=== PATIENT | female | born 1950 | race Caucasian/White ===

== ENCOUNTER 2022-02-16 07:29 | Inpatient (IN) ==
[~2022-02-16 07:29] MED LIST: Famotidine 20 MG TABLET PO ONE
[2022-02-16] MEDS ORDERED: Celecoxib 200 MG CAPSULE PO ONE (07:54)
[2022-02-16] MEDS: Ringers Solution, Lactated 1,000 ML IVC SCH ×2 (08:05→08:09)
[2022-02-16] MEDS ORDERED: MOM Conc 10 ML UD.LIQ PO PRN (08:10)
[2022-02-16] MEDS ORDERED: *HR* OxyCODONE Immed Rel 5 MG TABLET PO PRN (08:10)
[2022-02-16] MEDS ORDERED: Sennosides 8.6 MG TABLET PO PRN (08:10)
[2022-02-16] MEDS ORDERED: Ondansetron 4 MG/2 ML VIAL IVP PRN ×2 (08:10→10:44)
[2022-02-16] MEDS ORDERED: Lidocaine -MPF 2% 5 ML VIAL ONE (08:47)
[2022-02-16] MEDS ORDERED: *HR* FentaNYL (PF) 100 MCG/2 ML VIAL ONE (08:47)
[2022-02-16] MEDS ORDERED: Ondansetron 4 MG/2 ML VIAL ONE (08:47)
[2022-02-16] MEDS ORDERED: Lidocaine HCL 4 ML Topical Solution (Laryng-O-Jet Kit Sterile Pak) TP ONE (08:47)
[2022-02-16] MEDS ORDERED: *HR* Propofol 200 MG/20 ML VIAL IVP ONE (08:47)
[2022-02-16] MEDS ORDERED: *HR* Succinylcholine 200 MG/10 ML VIAL IVP ONE (08:47)
[2022-02-16] MEDS ORDERED: Lidocaine/EPI 1:100k 1% 30 ML VIAL ONE (09:09)
[2022-02-16] MEDS ORDERED: Bupivacaine/EPI 1:200k 0.25% 50 ML VIAL ONE (09:09)
[2022-02-16 09:20] LABS: Basophils # 0.1 K/mcL (0.0-0.2); Basophils % 1.5 %; Eosinophils # 0.2 K/mcL (0.0-0.6); Eosinophils % 2.3 %; Hematocrit 33.3 % (35.3-44.9); Hemoglobin 10.9 g/dL (11.5-15.4); Immature Granulocytes % 1.5 % (0-4); Lymphocytes # 1.3 K/mcL (0.6-4.6); Lymphocytes % 16.9 %; Mean Corpuscular HGB Conc 32.7 g/dL (31.6-35.5); Mean Corpuscular Hemoglobin 29.6 pg (28.0-33.3); Mean Corpuscular Volume 90.5 fL (83.0-100.0); Monocytes # 0.9 K/mcL (0.0-1.3); Monocytes % 11.9 %; Neutrophils # 5.2 K/mcL (1.6-8.9); Platelet Count 323 K/mcL (140-400); Red Blood Count 3.68 M/mcL (3.82-4.97); Red Cell Distribution Width 13.2 % (11.5-14.5); Segmented Neutrophils % 65.9 %; White Blood Count 7.9 K/mcL (4.3-11.1)
[2022-02-16] MEDS ORDERED: Ethanol\\Acetic Acid\\Na Ace\\Ben 1,000 ML IRRIG.SOLN IR ONE (09:26)
[2022-02-16] MEDS ORDERED: Hydrogen Peroxide (Sterile) 473 ML ONE (09:28)
[2022-02-16] MEDS ORDERED: Povidone-Iodine 45 ML, Sodium Chloride IRRigation 1,000 ML IR ONE (09:50)
[2022-02-16] MEDS ORDERED: *HR* HYDROMORPHONE 2 MG/ML VIAL ONE (10:19)
[2022-02-16] MEDS ORDERED: Tranexamic Acid 1,000 MG/10 ML VIAL ONE ×2 (10:22→11:17)
[2022-02-16] MEDS ORDERED: *HR* HYDROmorphone PF 0.5 MG/0.5 ML SYRINGE IVP PRN (10:44)
[2022-02-16] MEDS ORDERED: Vancomycin 1,000 MG VIAL ONE (10:59)
[2022-02-16] MEDS: Ketorolac 30 MG/ML VIAL IVP SCH ×3 (12:51→23:30)
[2022-02-16] MEDS: Acetaminophen 325 MG TABLET PO SCH ×3 (13:52→23:31)
[2022-02-16] MEDS: CeFAZolin 2 GM/100 ML BAG IVPB SCH (20:16)
[2022-02-16] MEDS: *HR* OxyCODONE Immed Rel 5 MG TABLET PO PRN (20:20)
[2022-02-16] MEDS: COLESTIPOL HCL 1 GM TABLET PO PRN (20:21)
[2022-02-16] MEDS ORDERED: Fluticasone Propionate Nasal 50 MCG/SPRAY BOTTLE NS PRN (20:41)
[2022-02-16] MEDS ORDERED: Colestipol Hcl [Colestid] 1 GM Tablet PO PRN (20:41)
[2022-02-16] MEDS ORDERED: Loratadine 10 MG TABLET PO PRN (20:41)
[2022-02-17] MEDS: *HR* OxyCODONE Immed Rel 5 MG TABLET PO PRN ×3 (03:08→19:46)
[2022-02-17] MEDS: CeFAZolin 2 GM/100 ML BAG IVPB SCH ×3 (03:22→19:47)
[2022-02-17] MEDS: Albuterol 2.5 MG/3 ML NEBULIZER IH SCH ×7 (03:43→23:38)
[2022-02-17 05:42] LABS: Basophils # 0.1 K/mcL (0.0-0.2); Basophils % 0.6 %; Eosinophils % 0.2 %; Hematocrit 25.6 % (35.3-44.9); Immature Granulocytes % 1.2 % (0-4); Lymphocytes # 1.3 K/mcL (0.6-4.6); Mean Corpuscular HGB Conc 32.4 g/dL (31.6-35.5); Mean Corpuscular Volume 89.5 fL (83.0-100.0); Mean Platelet Volume 10.8 fL (9.4-12.4); Monocytes # 0.9 K/mcL (0.0-1.3); Monocytes % 8.8 %; Neutrophils # 7.9 K/mcL (1.6-8.9); Platelet Count 375 K/mcL (140-400); Red Blood Count 2.86 M/mcL (3.82-4.97); Segmented Neutrophils % 76.2 %; White Blood Count 10.3 K/mcL (4.3-11.1)
[2022-02-17 05:46] LABS: Hemoglobin 8.3 g/dL (11.5-15.4)
[2022-02-17 06:01] LABS: BUN/Creatinine Ratio 26 (6-26); Blood Urea Nitrogen 23 mg/dL (8-23); Calcium 9.2 mg/dL (8.6-10.3); Carbon Dioxide 25 mEq/L (23-29); Chloride 101 mEq/L (98-107); Glucose 114 mg/dL (70-105); Osmolality,Calculated 285 (280-300); Potassium 3.2 mEq/L (3.5-5.1); Sodium 135 mEq/L (136-145); eGFR For African Americans > 60 (> 60); eGFR For Non-African Americans > 60 (> 60)
[2022-02-17] MEDS: COLESTIPOL HCL 1 GM TABLET PO PRN ×3 (06:11→21:30)
[2022-02-17] MEDS: Ketorolac 30 MG/ML VIAL IVP SCH ×3 (06:11→16:26)
[2022-02-17] MEDS: Acetaminophen 325 MG TABLET PO SCH ×4 (06:11→23:51)
[2022-02-17] MEDS: Multivit/Ca/Min/Fe/FA 1 TAB TABLET PO SCH (09:38)
[2022-02-17] MEDS: Cholecalciferol (D-3) 1,000 UNIT (25MCG) TABLET PO SCH (09:39)
[2022-02-17] MEDS: Ringers Solution, Lactated 1,000 ML IVC SCH (16:28)
[2022-02-18] MEDS: *HR* OxyCODONE Immed Rel 5 MG TABLET PO PRN (02:06)
[2022-02-18] MEDS: CeFAZolin 2 GM/100 ML BAG IVPB SCH ×3 (02:07→19:13)
[2022-02-18] MEDS: Acetaminophen 325 MG TABLET PO SCH ×3 (06:04→19:14)
[2022-02-18] MEDS: COLESTIPOL HCL 1 GM TABLET PO PRN ×3 (06:05→21:58)
[2022-02-18] MEDS: Albuterol 2.5 MG/3 ML NEBULIZER IH SCH ×5 (06:06→21:12)
[2022-02-18 07:27] LABS: Basophils # 0.1 K/mcL (0.0-0.2); Basophils % 1.4 %; Eosinophils # 0.1 K/mcL (0.0-0.6); Eosinophils % 1.9 %; Hematocrit 25.9 % (35.3-44.9); Hemoglobin 8.5 g/dL (11.5-15.4); Immature Granulocytes % 1.6 % (0-4); Lymphocytes # 1.9 K/mcL (0.6-4.6); Lymphocytes % 28.9 %; Mean Corpuscular HGB Conc 32.8 g/dL (31.6-35.5); Mean Corpuscular Hemoglobin 29.9 pg (28.0-33.3); Mean Corpuscular Volume 91.2 fL (83.0-100.0); Mean Platelet Volume 10.5 fL (9.4-12.4); Monocytes # 0.7 K/mcL (0.0-1.3); Monocytes % 10.5 %; Neutrophils # 3.6 K/mcL (1.6-8.9); Platelet Count 381 K/mcL (140-400); Red Blood Count 2.84 M/mcL (3.82-4.97); Red Cell Distribution Width 13.1 % (11.5-14.5); Segmented Neutrophils % 55.7 %; White Blood Count 6.4 K/mcL (4.3-11.1)
[2022-02-18 08:37] LABS: BUN/Creatinine Ratio 25 (6-26); Blood Urea Nitrogen 16 mg/dL (8-23); Calcium 9.1 mg/dL (8.6-10.3); Carbon Dioxide 28 mEq/L (23-29); Chloride 105 mEq/L (98-107); Glucose 89 mg/dL (70-105); Osmolality,Calculated 295 (280-300); Potassium 3.3 mEq/L (3.5-5.1); Sodium 142 mEq/L (136-145); eGFR For African Americans > 60 (> 60); eGFR For Non-African Americans > 60 (> 60)
[2022-02-18] MEDS: Cholecalciferol (D-3) 1,000 UNIT (25MCG) TABLET PO SCH (09:25)
[2022-02-18] MEDS: Multivit/Ca/Min/Fe/FA 1 TAB TABLET PO SCH (09:26)
[2022-02-19] MEDS: Albuterol 2.5 MG/3 ML NEBULIZER IH SCH ×7 (00:03→23:30)
[2022-02-19] MEDS: Acetaminophen 325 MG TABLET PO SCH ×5 (02:10→23:33)
[2022-02-19] MEDS: CeFAZolin 2 GM/100 ML BAG IVPB SCH ×2 (02:32→10:17)
[2022-02-19] MEDS: COLESTIPOL HCL 1 GM TABLET PO PRN ×2 (05:58→21:56)
[2022-02-19] MEDS: Multivit/Ca/Min/Fe/FA 1 TAB TABLET PO SCH (10:04)
[2022-02-19] MEDS: Cholecalciferol (D-3) 1,000 UNIT (25MCG) TABLET PO SCH (10:04)
[2022-02-19] MEDS ORDERED: DAPTOmycin 450 MG in 0.9 % Sodium Chloride 100 ML IVPB SCH (18:00)
[2022-02-20] MEDS: Albuterol 2.5 MG/3 ML NEBULIZER IH SCH ×3 (03:57→11:50)
[2022-02-20] MEDS: Acetaminophen 325 MG TABLET PO SCH ×2 (05:50→12:24)
[2022-02-20] MEDS: COLESTIPOL HCL 1 GM TABLET PO PRN (05:50)
[2022-02-20] MEDS: Cholecalciferol (D-3) 1,000 UNIT (25MCG) TABLET PO SCH (08:40)
[2022-02-20] MEDS: Multivit/Ca/Min/Fe/FA 1 TAB TABLET PO SCH (08:40)
[2022-02-20 11:16] VITALS: BP 165/84; PULSE 80; TEMP 98.3; O2SAT 99
[2022-02-20] MEDS ORDERED: DAPTOmycin 450 MG in 0.9 % Sodium Chloride 100 ML IVPB SCH (15:00)
== END 2022-02-20 15:48 | disposition home health service (06) | DRG 483 ==
LOC: SDCAOSI 07:29 → 4WAOSI 13:32 → INTOOBSV 13:32
PROVIDERS: ADMIT Orthopaedic Surgery; ATTEND Orthopaedic Surgery